=== PATIENT | female | born 1985 | race African-American/Black ===

== ENCOUNTER 2017-05-12 10:09 | Emergency (ER) | payer MEDICAID ==
[~2017-05-12] VITALS: Ht 160 cm; Wt 73.0 kg
[2017-05-12 11:05] LABS: CLARITY URINE CLEAR (CLEAR); COLOR URINE YELLOW (YELLOW); GLUCOSE URINE NEGATIVE (NEGATIVE); KETONES URINE NEGATIVE (NEGATIVE); LEUKOCYTE ESTERASE URINE NEGATIVE (NEGATIVE); NITRITE URINE NEGATIVE (NEGATIVE); OCCULT BLOOD URINE NEGATIVE (NEGATIVE); PH URINE 6.5 (4.5-8.0); PROTEIN URINE NEGATIVE (NEGATIVE); SPECIFIC GRAVITY URINE 1.003 (1.005-1.030); UROBILINOGEN URINE 0.2 E.U./dL (0.2-1.0)
[2017-05-12 11:13] LABS: BASOPHILS % 0.7 % (0.0-2.0); EOSINOPHILS % 1.2 % (0.0-5.0); HEMATOCRIT. 36.5 % (36.0-48.0); HEMOGLOBIN. 12.2 g/dL (12.0-16.0); LYMPHOCYTES % 33.5 % (20.0-50.0); MEAN CORPUSCULAR HEMOGLOBIN 30.9 pg (28.0-32.0); MEAN CORPUSCULAR VOLUME 92.5 fL (81.0-99.0); MONOCYTES % 10.8 % (2.0-8.0); NEUTROPHILS % 53.8 % (40.0-76.0); PLATELET 183 x1000/uL (130-400); RED BLOOD CELL COUNT 3.94 mill/uL (4.2-5.4); RED CELL DISTRIBUTION WIDTH 14.7 % (11.6-14.6)
[2017-05-12 11:34] LABS: HCG SCREEN NEGATIVE
[2017-05-12 11:35] LABS: CARBON DIOXIDE 27 mEq/L (21-32)
[2017-05-12 11:42] LABS: CHLORIDE 105 mEq/L (98-107)
[2017-05-12 12:11] VITALS: BP 116/61
[2017-05-16 04:11] LABS: CHLAMYDIA TRACHOMATIS NAA Negative (Negative); NEISSERIA GONORRHOEAE NAA Negative (Negative)
== END 2017-05-12 12:58 | disposition home or self-care (01) ==
LOC: ER 10:45
DX: N76.0 Acute vaginitis (principal); J45.909 Unspecified asthma, uncomplicated; Z88.8 Allergy status to other drugs, medicaments and biological substances; F17.200 Nicotine dependence, unspecified, uncomplicated
CPT/HCPCS: 36415; 80053; 81003; 84703; 85025; 87210; 87491; 87591; 99284; Z7610

== ENCOUNTER 2017-06-07 20:17 | Emergency (ER) | payer MEDICAID | END 2017-06-07 22:00 | disposition left against medical advice (07) | LOC: ER 20:17 | DX: M54.5 Low back pain (principal); Z53.21 Procedure and treatment not carried out due to patient leaving prior to being seen by health care provider ==

== ENCOUNTER 2021-03-29 15:11 | Emergency (ER) | payer MEDICAID ==
[~2021-03-29] VITALS: Ht 165.1 cm; Wt 70.0 kg
[2021-03-29] MEDS ORDERED: BACITRACIN ZINC OINT UDPKT TOP ONE (16:30)
[2021-03-29] MEDS ORDERED: TETANUS, DIPHTHERIA, PERTUSSIS VAC/PF 0.5ML (>7YR OLD) IM ONE (16:30)
[2021-03-29] MEDS ORDERED: IBUPROFEN 800MG TABLET PO ONE (16:30)
[2021-03-29] MEDS ORDERED: IBUP-2029 MT (16:39)
[2021-03-29] MEDS ORDERED: NEOM28.37 TP (16:39)
[2021-03-29 16:40] VITALS: BP 131/75
== END 2021-03-29 16:50 | disposition home or self-care (01) ==
LOC: ER 15:11
DX: S16.1XXA Strain of muscle, fascia and tendon at neck level, initial encounter (principal); S50.812A Abrasion of left forearm, initial encounter; S20.112A Abrasion of breast, left breast, initial encounter; R03.0 Elevated blood-pressure reading, without diagnosis of hypertension; W22.11XA Striking against or struck by driver side automobile airbag, initial encounter; V43.52XA Car driver injured in collision with other type car in traffic accident, initial encounter; Y93.89 Activity, other specified; Y92.488 Other paved roadways as the place of occurrence of the external cause; Z23 Encounter for immunization
CPT/HCPCS: 81025; 90471; 90715; 99283